=== PATIENT | female | born 1955 | race American Indian/Alaskan Native ===

== ENCOUNTER 2019-06-01 05:53 | Day surgery (SDC) | payer MEDICARE ==
[~2019-06-01 05:53] MED LIST: BUPIVACAINE/PF (0.5%) 5 MG/1 ML 10 ML VIAL INFILTRATI ONE; HEPARIN 10,000 UNITS/10 ML VIAL IV ONE; SODIUM CHLORIDE 0.9% 500 ML IVPB IV ONE
[2019-06-01] MEDS ORDERED: ceFAZolin/Water 2 GM/20 ML 2 GM/20 ML SYRINGE IV NR (07:00)
[2019-06-01] MEDS ORDERED: fentaNYL 100 MCG/2 ML INJ IV PRN (07:12)
[2019-06-01] MEDS ORDERED: ONDANSETRON 4 MG/2 ML INJ IV PRN (07:12)
--- NOTE | 2019-06-01 07:17 | Anesthesia Day of Surgery ---
Anesthesia Day of Surgery - Day of Surgery Patient Examined: Yes Patient H&P Reviewed: Yes Patient is NPO: Yes Beta Blockers: Yes
[2019-06-01] MEDS ORDERED: SODIUM CHLORIDE 0.9% 500 ML 500 ML ONE (07:19)
[2019-06-01] MEDS ORDERED: HEPARIN 10,000 UNITS/10 ML VIAL ONE (07:19)
[2019-06-01] MEDS ORDERED: BUPIVACAINE/PF (0.5%) 5 MG/1 ML 30 ML VIAL INFILTRATI ONE (07:19)
[2019-06-01] MEDS ORDERED: SODIUM CHLORIDE P/F VIAL 10 ML 0 ML ONE (07:19)
[2019-06-01] MEDS ORDERED: PROTAMINE SULFATE 50 MG/5 ML INJ ONE (07:19)
[2019-06-01] MEDS ORDERED: NITROGLYCERIN SYRINGE 0 ML ONE (07:20)
--- NOTE | 2019-06-01 07:23 | Anesthesia Consultation ---
Anesthesia Consult and Med Hx Date of service: 06/01/19 - Airway Anesthetic Teeth Evaluation: Poor (LOOSE) ROM Head & Neck: Adequate Mental/Hyoid Distance: Adequate Mallampati Class: Class III Intubation Access Assessment: Probably Good - Pulmonary Exam CTA: Yes - Cardiac Exam Cardiac Exam: RRR - Pre-Operative Health Status ASA Pre-Surgery Classification: ASA3 Proposed Anesthetic Plan: General - Pulmonary Hx Smoking: No Hx Respiratory Symptoms: Yes (Bronchitis last week. ABX and pt states much better) SOB: Yes Hx Sleep Apnea: No - Cardiovascular System Hx Hypertension: Yes (CHF-pt states stable) Hx Heart Attack/AMI: No - Central Nervous System Hx Neuromuscular Disorder: Yes (Fibromyalgia) Hx Psychiatric Problems: No - Endocrine Hx Renal Disease: Yes Hx End Stage Renal Disease: Yes (DX 1 YR.) Hx Non-Insulin Dependent Diabetes: Yes - Hematic Hx Anemia: Yes - Other Systems Hx Alcohol Use: Yes (OCC WINE) Hx Substance Use: No Hx Cancer: No
[2019-06-01 07:26] LABS: Hematocrit 21.7 % (30.3-42.9); Hemoglobin 7.4 gm/dl (10.1-14.3); Mean Corpuscular HGB Conc 34 % (30-34); Mean Corpuscular Volume 95 fl (79-97); Platelet Count 239 K/mm3 (140-440); Red Blood Count 2.28 M/mm3 (3.65-5.03)
[2019-06-01 07:34] LABS: Calcium 8.9 mg/dL (8.4-10.2)
[2019-06-01] MEDS ORDERED: fentaNYL 100 MCG/2 ML INJ ONE (07:42)
[2019-06-01] MEDS ORDERED: PROPOFOL 200 MG/20 ML VIAL IV ONE (07:42)
[2019-06-01] MEDS ORDERED: KETAMINE/STERILE WATER 50 MG/ML SYRINGE ONE (07:42)
[2019-06-01] MEDS ORDERED: LIDOCAINE MPF (2%) 20 MG/1 ML VIAL 5 ML ONE (07:42)
[2019-06-01] MEDS ORDERED: SODIUM CHLORIDE 0.9% 1000 ML 1,000 ML IV SCH (08:00)
[2019-06-01] MEDS ORDERED: PHENYLEPHRINE/NS 1,000 MCG/10 ML SYRINGE (OR USE) IV ONE (08:53)
[2019-06-01] MEDS ORDERED: GLYCOPYRROLATE 0.4 MG/2 ML INJ ONE (08:56)
[2019-06-01] MEDS ORDERED: SODIUM CHLORIDE 0.9% 500 ML IVPB IV ONE (09:32)
[2019-06-01] MEDS ORDERED: HEPARIN 10,000 UNITS/10 ML VIAL IV ONE (09:32)
[2019-06-01] MEDS ORDERED: BUPIVACAINE/PF (0.5%) 5 MG/1 ML 10 ML VIAL INFILTRATI ONE (09:50)
--- NOTE | 2019-06-01 10:09 | Short Stay Summary ---
Short Stay Documentation Date of service: 06/01/19 Narrative H&P: See H&P - History H&P: obtained from office - Allergies and Medications Current Medications: Allergies codeine Adverse Reaction (Intermediate, Verified 05/30/19 12:17) Itching hydrocodone Adverse Reaction (Verified 06/01/19 08:00) Itching lisinopril Adverse Reaction (Verified 06/01/19 08:00) Itching Home Medications Medication Instructions Recorded Confirmed Last Taken Type ALBUTEROL NEB's [Proventil 0.083% 1 inhalation IH PRN 05/30/19 06/01/19 05/31/19 20:00 History NEBS] Doxazosin 1 mg PO DAILY 05/30/19 06/01/19 06/01/19 07:20 History Gabapentin 100 mg PO DAILY 05/30/19 06/01/19 06/01/19 07:20 History Me-Tetrahydrofolate/B12/Dog501 1 cap PO DAILY 05/30/19 06/01/19 05/31/19 11:00 History [Rheumate Capsule] Rosuvastatin (Nf) 5 mg PO DAILY 05/30/19 06/01/19 05/31/19 11:00 History Sitagliptin Phosphate [Januvia] 25 mg PO DAILY 05/30/19 06/01/19 05/31/19 11:00 History Torsemide [Demadex] 100 mg PO DAILY 05/30/19 06/01/19 05/31/19 11:00 History carvediloL [Coreg] 25 mg PO BID 05/30/19 06/01/19 06/01/19 07:20 History Active Medications Fentanyl (Sublimaze) 50 mcg IV Q5MIN PRN PRN Reason: Pain , Severe (7-10) Stop: 06/01/19 16:00 Cefazolin Sodium (Ancef/Sterile Water 2 Gm/20 Ml) 2 gm in 20 mls @ 80 mls/hr IV PREOP NR; Protocol Stop: 06/01/19 23:59 Sodium Chloride (Nacl 0.9% 1000 Ml) 1,000 mls @ 42 mls/hr IV DIRECT DEE Last Admin: 06/01/19 07:40 Dose: 42 mls/hr Documented by: Ondansetron HCl (Zofran) 4 mg IV ONCE PRN PRN Reason: Nausea And Vomiting Stop: 06/01/19 16:00 - Brief post op/procedure progress note Date of procedure: 06/01/19 Pre-op diagnosis: Chronic Renal Insufficiency Post-op diagnosis: same Procedure: Creation of Left Brachiobasilic Arteriovenous Fistula Anesthesia: JOSE Surgeon: DAWN AARON Estimated blood loss: minimal Pathology: none Condition: stable - Disposition Condition at discharge: Good Disposition: DC-01 TO HOME OR SELFCARE Short Stay Discharge Plan Activity: other (No lifting with left arm, use stress ball frequently) Wound: open to air, keep clean and dry, other (Okay to Shower and Wash the Wound with Soap and Water but Do Not Soak in Water) Follow up with: DAWN AARON MD [Staff Physician] - 14 Days Prescriptions: oxyCODONE /ACETAMINOPHEN [Percocet 5/325] 1 tab PO Q6HR PRN #40 tablet PRN Reason: Pain
--- NOTE | 2019-06-01 10:13 | Operative Report ---
Operative Report Operative Report: Date of procedure: 06/01/2019 Pre-operative diagnosis: End-stage Renal Disease Post-operative diagnosis: End-stage Renal Disease Procedure(s): Creation of Left Brachial Artery to Basilic Arteriovenous Fistula Surgeon: Suhail Adkins MD Automobile Sales Consultant: None Anesthesia: Local/LMA EBL: Minimal Counts: Correct Complications: None Condition: Stable Findings: Successful creation of left brachial basilic arteriovenous fistula with palpable thrill at completion of the procedure. Specimen: None Indication: The patient is a 64-year-old female with a history of stage IV chronic renal insufficiency who is not yet on hemodialysis but anticipated that she will require hemodialysis within the next several months. She is in need of long- term access to avoid requiring a permacath for dialysis. She is a vein mapping demonstrated she was an adequate candidate for creation of an AV fistula. She was given the risk, benefits, and alternative procedures of creation of an AV fistula and consented to the procedure. Description of Procedure: The patient was brought to the operating room and laid in supine position after general endotracheal anesthesia was administered the patient was prepped and draped in normal sterile fashion. After anesthetizing the skin a transverse incision was created just below the antecubital crease. Dissection was carried down to the the basilic vein using sharp dissection. The vein was dissected out both proximally and distally and suture ligated and divided distally. I then ran a 3 Susnhine proximally in the vein, to ensure patency of the vein. I then flushed the vein with heparinized saline and controlled flow with a bulldog clamp. I then dissected out the brachial artery through this incision circumferentially both proximal and distal and controlled th artery with vessel loops. I placed the vessel loops on tension, controlling the flow through the artery, and created an arteriotomy using an 11 blade and Clemens scissors. I created an end to side anastomosis between the basilic vein and brachial artery using a 6-0 Prolene in running fashion. Prior to completing the anastomosis I flushed the artery both proximally and distally and then advanced a 3 Sunshine proximally to break the spasm in the artery. I completed the anastomosis and removed all vessel loops allowing flow into the fistula which had an excellent thrill. I achieved hemostasis with a combination of direct pressure and electrocautery. Once hemostasis was achieved I anesthetized the wound with Marcaine. I closed the wound in 2 layers using 3-0 Vicryl in a running fashion to close the deep dermal layer and 4-0 Monocryl in a running fashion in the subcuticular layer. I dressed the wound with Surgicel. The patient tolerated the procedure well, all sponge needle and instrument counts were correct. The patient was taken to recovery in stable condition.
[2019-06-01] MEDS ORDERED: oxyCODONE /ACETAMINOPHEN 5-325MG TAB PO PRN (10:50)
[2019-06-01 12:00] VITALS: BP 158/81
--- NOTE | 2019-06-01 15:51 | Post Anesthesia Evaluation ---
- Post Anesthesia Evaluation Patient Participated: Yes Airway Patent: Yes Stable Respiratory Function: Yes Nausea/Vomiting: No Temp > 96.8F: Yes Pain Manageable: Yes Adequeate Hydration: Yes Anesthesia Complications: No Block Receding Appropriately: Not Applicable Patient on Ventilator: No
== END 2019-06-01 11:50 | disposition home or self-care (01) ==
LOC: OR 05:53
PROVIDERS: ATTEND Surgery Vascular Surgery
DX: I13.2 Hypertensive heart and chronic kidney disease with heart failure and with stage 5 chronic kidney disease, or end stage renal disease (principal); E11.22 Type 2 diabetes mellitus with diabetic chronic kidney disease; N18.6 End stage renal disease; I50.9 Heart failure, unspecified; E78.00 Pure hypercholesterolemia, unspecified; M19.90 Unspecified osteoarthritis, unspecified site; M79.7 Fibromyalgia; Z88.5 Allergy status to narcotic agent; Z88.8 Allergy status to other drugs, medicaments and biological substances; Z79.899 Other long term (current) drug therapy; Z90.710 Acquired absence of both cervix and uterus; Z72.89 Other problems related to lifestyle; Z98.890 Other specified postprocedural states; Z86.2 Personal history of diseases of the blood and blood-forming organs and certain disorders involving the immune mechanism
CPT/HCPCS: 36415; 36821; 80048; 82803; 82962; 85027; J0690; J1644; J2370; J2704; J3010; J7030; J7040; J2720

== ENCOUNTER 2019-07-27 06:52 | Day surgery (SDC) | payer MEDICARE ==
[~2019-07-27 06:52] MED LIST changes: -BUPIVACAINE/PF (0.5%) 5 MG/1 ML 10 ML VIAL INFILTRATI ONE; -HEPARIN 10,000 UNITS/10 ML VIAL IV ONE; -SODIUM CHLORIDE 0.9% 500 ML IVPB IV ONE; +ceFAZolin/Water 2 GM/20 ML 2 GM/20 ML SYRINGE IV NR
--- NOTE | 2019-07-27 07:52 | Anesthesia Consultation ---
Anesthesia Consult and Med Hx Date of service: 07/27/19 - Airway Anesthetic Teeth Evaluation: Poor (loose botton incisor, multiple chipped and missing teeth) ROM Head & Neck: Inadequate (mild restricted extension) Mental/Hyoid Distance: Adequate Mallampati Class: Class II Intubation Access Assessment: Possibly Difficult (previous easy LMA 4) - Pulmonary Exam CTA: Yes - Cardiac Exam Cardiac Exam: RRR - Pre-Operative Health Status ASA Pre-Surgery Classification: ASA3 Proposed Anesthetic Plan: General - Pulmonary Hx Smoking: No Hx Respiratory Symptoms: No - Cardiovascular System Hx Hypertension: Yes (took carvedilol this morning) Hx Heart Attack/AMI: No (hx CHF - follows w/ cardiology outpatient. Patient states stable.) Hx Percutaneous Transluminal Coronary Angioplasty (PTCA): No Hx Cardia Arrhythmia: No Hx Pacemaker: No Hx Internal Defibrillator: No - Central Nervous System Hx Neuromuscular Disorder: No (Fibromyalgia) CVA: No Hx Psychiatric Problems: No - Gastrointestinal Hx Gastroesophageal Reflux Disease: No - Endocrine Hx End Stage Renal Disease: Yes (last HD 07/26/2019) Hx Liver Disease: No Hx Non-Insulin Dependent Diabetes: Yes Hx Thyroid Disease: No - Hematic Hx Anemia: Yes - Other Systems Hx Obesity: Yes - Additional Comments Anesthesia Medical History Comments: Hx post-discharge nausea/vomiting. No signs/symptoms HF compensation.
--- NOTE | 2019-07-27 07:52 | Anesthesia Day of Surgery ---
Anesthesia Day of Surgery - Day of Surgery Patient Examined: Yes Patient H&P Reviewed: Yes Patient is NPO: Yes Beta Blockers: Yes (carvedilol 15 AM)
[2019-07-27] MEDS ORDERED: SCOPOLAMINE TRANSDERMAL PATCH 72 HR TD NR (08:00)
[2019-07-27] MEDS ORDERED: SODIUM CHLORIDE 0.9% 1000 ML 1,000 ML IV SCH (08:00)
[2019-07-27] MEDS ORDERED: fentaNYL 100 MCG/2 ML INJ IV PRN (08:00)
[2019-07-27] MEDS ORDERED: ONDANSETRON 4 MG/2 ML INJ ONE ×2 (08:20→10:58)
[2019-07-27] MEDS ORDERED: ONDANSETRON 4 MG/2 ML INJ IV NR (08:45)
[2019-07-27] MEDS ORDERED: PAPAVERINE 60 MG/2 ML INJ SDV ONE (10:52)
[2019-07-27] MEDS ORDERED: SODIUM CHLORIDE P/F VIAL 10 ML 0 ML ONE (10:52)
[2019-07-27] MEDS ORDERED: rifAMPin 600 MG VIAL ONE (10:52)
[2019-07-27] MEDS ORDERED: HEPARIN 10,000 UNITS/10 ML VIAL ONE (10:52)
[2019-07-27] MEDS ORDERED: LIDOCAINE (1%) 10 MG/1 ML VIAL 20 ML MDV ONE (10:52)
[2019-07-27] MEDS ORDERED: SODIUM CHLORIDE 0.9% 500 ML 500 ML ONE (10:52)
[2019-07-27] MEDS ORDERED: PROTAMINE SULFATE 50 MG/5 ML INJ ONE (10:52)
[2019-07-27] MEDS ORDERED: BUPIVACAINE/PF (0.5%) 5 MG/1 ML 30 ML VIAL INFILTRATI ONE ×3 (10:52→17:58)
[2019-07-27] MEDS ORDERED: dexAMETHasone 20 MG/5 ML VIAL ONE (10:58)
[2019-07-27] MEDS ORDERED: PHENYLEPHRINE/NS 1,000 MCG/10 ML SYRINGE (OR USE) IV ONE (10:58)
[2019-07-27] MEDS ORDERED: LIDOCAINE MPF (2%) 20 MG/1 ML VIAL 5 ML ONE ×2 (10:58→17:07)
[2019-07-27] MEDS ORDERED: PROPOFOL 200 MG/20 ML VIAL IV ONE ×2 (10:58→17:08)
[2019-07-27] MEDS ORDERED: fentaNYL 100 MCG/2 ML INJ ONE ×3 (10:58→20:29)
[2019-07-27] MEDS ORDERED: GLYCOPYRROLATE 0.4 MG/2 ML INJ ONE (17:51)
[2019-07-27] MEDS ORDERED: HEPARIN 1,000 UNIT/1 ML VIAL IV ONE (17:58)
[2019-07-27] MEDS ORDERED: SODIUM CHLORIDE 0.9% 0 ML ONE (18:05)
--- NOTE | 2019-07-27 20:22 | Short Stay Summary ---
Short Stay Documentation Date of service: 07/27/19 Narrative H&P: See H&P - History H&P: obtained from office - Allergies and Medications Current Medications: Allergies codeine Adverse Reaction (Intermediate, Verified 07/21/19 15:14) Itching hydrocodone Adverse Reaction (Verified 07/21/19 15:14) Itching lisinopril Adverse Reaction (Verified 07/21/19 15:14) Itching Home Medications Medication Instructions Recorded Confirmed Last Taken Type ALBUTEROL NEB's [Proventil 0.083% 1 inhalation IH PRN 05/30/19 07/27/19 05/31/19 20:00 History NEBS] Doxazosin 1 mg PO DAILY 05/30/19 07/27/19 07/26/19 History Gabapentin 100 mg PO DAILY 05/30/19 07/21/19 07/26/19 History Me-Tetrahydrofolate/B12/Eyg899 1 cap PO DAILY 05/30/19 07/27/19 05/31/19 11:00 History [Rheumate Capsule] Rosuvastatin (Nf) 5 mg PO DAILY 05/30/19 07/21/19 07/26/19 History Sitagliptin Phosphate [Januvia] 25 mg PO DAILY 05/30/19 07/21/19 07/26/19 History Torsemide [Demadex] 100 mg PO DAILY 05/30/19 07/21/19 07/26/19 History carvediloL [Coreg] 25 mg PO BID 05/30/19 07/21/19 07/27/19 06:20 History oxyCODONE /ACETAMINOPHEN [Percocet 1 tab PO Q6HR PRN #40 tablet 06/01/19 07/21/19 07/26/19 Rx 5/325] Active Medications Sodium Chloride (Nacl 0.9% 1000 Ml) 1,000 mls @ 42 mls/hr IV DIRECT DEE Last Admin: 07/27/19 08:40 Dose: 42 mls/hr Documented by: - Brief post op/procedure progress note Date of procedure: 07/27/19 Pre-op diagnosis: Complications of Dialysis Access Post-op diagnosis: same Procedure: Revision with Elevation of Left Brachiobasilic Arteriovenous Fistula Anesthesia: GETA Surgeon: DAWN AARON Estimated blood loss: minimal Pathology: none Condition: stable - Disposition Condition at discharge: Good Disposition: DC-01 TO HOME OR SELFCARE Short Stay Discharge Plan Activity: other (No heavy lifting with left arm until cleared by surgeon) Wound: open to air, keep clean and dry, other (Okay to wash the wound with soap and water bu do no soak in water) Follow up with: DAWN AARON MD [Staff Physician] - 14 Days Prescriptions: oxyCODONE /ACETAMINOPHEN [Percocet 5/325 mg] 1 tab PO Q6HR PRN #40 tablet PRN Reason: Pain
--- NOTE | 2019-07-27 20:27 | Operative Report ---
Operative Report Operative Report: Date of procedure: 07/27/2019 Pre-operative diagnosis: Complications of Dialysis Access Post-operative diagnosis: Same Procedure(s): Revision with Elevation of Left Brachiobasilic AV Fistula Surgeon: Suhail Adkins MD It Communications Manager: None Anesthesia: General Endotracheal Anesthesia EBL: Minimal Counts: Correct Complications: None Condition: Stable Findings: Successful elevation of left brachiobasilic fistula with excellent thrill. Specimen: None Indication: The patient is a 64-year-old female with a history of end-stage renal disease who is on hemodialysis through a right internal permacath. She had creation of left brachial basilic arteriovenous fistula that is in the revision with elevati on. She was given the risks, benefits, and alternative procedures and concentric procedure. Description of Procedure: The patient was brought to the operating room and laid in supine position after general endotracheal anesthesia was achieved her left arm was prepped and draped in normal sterile fashion. A longitudinal incision was then created on the medial aspect of the arm centered over the fistula extending from the axillary crease to the antecubital crease. Sharp dissection was used to continue the dissection down to the fistula. The fistula was then dissected circumferentially and all side branches were suture ligated and divided. A Nadira-Wick tunneler was then used to tunnel from the distal part of the incision towards the proximal portion of the incision and a lateral and slightly curved direction. The fistula was then marked on the anterior surface, the inflow was controlled with a DeBakey, clamp and the outflow was controlled with bulldog clamps. This vessel was then divided near the arterial inflow and secured to the Nadira-Wick tunneler with 2-0 silk and then pulled retrograde through the tunnel. I flushed the venous outflow with heparinized saline to assure that there was no evidence of twist or kinks. I then performed an end-to-end anastomosis between the proximal and distal ends using two 6-0 Prolenes in running fashion. Prior to completing the anastomosis I flushed the arterial inflow of the fistula to ensure there was no clot or debris. I then completed the anastomosis and removed all clamps allowing flow through the fistula which had an excellent thrill. I achieved hemostasis in the wound with a combination of direct pressure and electrocautery. I then anesthetized the wound with 0.5% Marcaine and closed the wound in 2 layers using a 3-0 Vicryl in running fashion in the deep dermal layer and a 4-0 Monocryl in running fashion in the subcuticular. I then dressed the wound with Dermabond. The patient tolerated the procedure well, all sponge needle and instrument counts were correct, the patient was taken to the recovery area in stable condition.
[2019-07-27] MEDS: fentaNYL 100 MCG/2 ML INJ IV PRN ×2 (20:30→20:42)
[2019-07-27] MEDS ORDERED: oxyCODONE /ACETAMINOPHEN 5-325MG TAB PO PRN (20:32)
[2019-07-27 20:53] VITALS: BP 150/63
--- NOTE | 2019-07-27 21:02 | Post Anesthesia Evaluation ---
- Post Anesthesia Evaluation Patient Participated: Yes Airway Patent: Yes Stable Respiratory Function: Yes Nausea/Vomiting: No Temp > 96.8F: Yes Pain Manageable: Yes Adequeate Hydration: Yes Anesthesia Complications: No
== END 2019-07-27 21:25 | disposition home or self-care (01) ==
LOC: OR 06:52
PROVIDERS: ATTEND Surgery Vascular Surgery
DX: I13.2 Hypertensive heart and chronic kidney disease with heart failure and with stage 5 chronic kidney disease, or end stage renal disease (principal); I50.9 Heart failure, unspecified; N18.6 End stage renal disease; E78.00 Pure hypercholesterolemia, unspecified; D64.9 Anemia, unspecified; E66.9 Obesity, unspecified; Z90.710 Acquired absence of both cervix and uterus; Z98.890 Other specified postprocedural states; Z99.2 Dependence on renal dialysis; Z88.5 Allergy status to narcotic agent; Z88.8 Allergy status to other drugs, medicaments and biological substances; Z79.899 Other long term (current) drug therapy; Z72.89 Other problems related to lifestyle; Z68.36 Body mass index [BMI] 36.0-36.9, adult
CPT/HCPCS: 36832; 82803; 82962; C1757; J0690; J1100; J1644; J2370; J2405; J2704; J3010; J7030; J7040; J2440; J2720; J3490

== ENCOUNTER 2021-04-03 08:23 | Day surgery (SDC) | payer MEDICARE ==
[2021-04-03] MEDS ORDERED: SODIUM CHLORIDE 0.9% 500 ML 500 ML IV SCH (09:00)
[2021-04-03] MEDS ORDERED: LIDOCAINE (2%) 20 MG/1 ML VIAL 20 ML MDV INFILTRATI ONE (10:34)
[2021-04-03] MEDS ORDERED: HEPARIN/NS 5000 UNIT/500ML 1,000 ML IR ONE (10:35)
[2021-04-03] MEDS ORDERED: fentaNYL 100 MCG/2 ML INJ ONE (10:37)
[2021-04-03] MEDS ORDERED: MIDAZOLAM 2 MG/2 ML INJ ONE (10:37)
--- NOTE | 2021-04-03 10:40 | Short Stay Summary ---
Short Stay Documentation Date of service: 04/03/21 Narrative H&P: The patient is a 65-year-old female with a history of end-stage renal disease who presented to an outside hospital with a diagnosis of COVID-19 infection on March 04, 2021. She states during that hospitalization her left arm arteriovenous graft thrombosed. During hospitalization she did not undergo intervention to restore flow in the graft and instead had a permacath placed. She presents for possible percutaneous mechanical thrombectomy of the graft. She has no additional complaints at this time. She has been given the risk, benefits, and alternative procedures and has consented to the procedure. - History Past Medical History: diabetes, dialysis, ESRD, heart failure, hypertension Past Surgical History: Other (Creation of left arm arteriovenous graft x2) Social history: no significant social history - Allergies and Medications Current Medications: Allergies codeine Adverse Reaction (Intermediate, Verified 07/21/19 15:14) Itching hydrocodone Adverse Reaction (Verified 07/21/19 15:14) Itching lisinopril Adverse Reaction (Verified 07/21/19 15:14) Itching Home Medications Medication Instructions Recorded Confirmed Last Taken Type ALBUTEROL NEB's [Proventil 0.083% 1 inhalation IH PRN 05/30/19 04/03/21 02/24/21 History NEBS] 3 ml Sitagliptin Phosphate [Januvia] 25 mg PO DAILY 05/30/19 04/03/21 04/02/21 History 25 mg Torsemide [Demadex] 100 mg PO DAILY 05/30/19 04/03/21 04/02/21 History 100 mg carvediloL [Coreg] 25 mg PO BID 05/30/19 04/03/21 04/02/21 History 25 mg Cholecalciferol Vit D3 [Vitamin D3 125 mcg PO DAILY 04/03/21 04/03/21 04/02/21 History 1,000 UNIT TAB] 125 mcg Cinacalcet [Sensipar] 30 mg PO DAILY 04/03/21 04/03/21 04/02/21 History 30 mg Ferric Citrate (Nf) [Auryxia] 2 tab PO BID 04/03/21 04/03/21 04/02/21 History 2 tabs Ferrous Sulfate [Iron 325 MG] 325 mg PO DAILY 04/03/21 04/03/21 04/02/21 History 1 tab NIFEdipine [Procardia Xl] 30 mg PO DAILY 04/03/21 04/03/21 04/02/21 History 30 mg Rosuvastatin Calcium [Crestor] 10 mg PO DAILY 04/03/21 04/03/21 04/02/21 History 10 mg Vit B Complx C/Folic Acid/Zinc 1 tab PO DAILY 04/03/21 04/03/21 04/02/21 History [Dialyvite 800-Zinc 15 mg Tab] 1 tab Active Medications Sodium Chloride (Nacl 0.9% 500 Ml) 500 mls @ 50 mls/hr IV DIRECT DEE - Physical exam General appearance: no acute distress Lungs: Normal air movement Breasts: deferred Heart: Regular rate Gastrointestinal: normal Female Genitourinary: deferred Rectal Exam: deferred Extremities: no ischemia, abnormal (Left arm AV graft is without pulse or thrill, there is no pseudoaneurysm present) - Brief post op/procedure progress note Date of procedure: 04/03/21 Pre-op diagnosis: Complications of Dialysis Access Post-op diagnosis: same Procedure: 1. Access Left Arm AV Graft with 7 Sudanese Sheath Venous 2. Access Left Arm AV Graft with 6 Sudanese Sheath Arterial 3. Diagnostic Fistulogram with Central Venogram 4. Angioplasty and Stent of Left Arm AV Graft With 8 x 40 Conquest Balloon, 8 x 60 Covera Stent Graft at the Venous Anastomosis, 8 x 5 cm Viabahn Stent Graft Near the Arterial Inflow, and 6 x 40 Grapevine Balloon of the Arterial Anastomosis 5. Percutaneous Pharmacomechanical Thrombectomy of Left Arm AV Graft with 6 mg of TPA, Trerotola Device, and Aspiration with a 6 Sudanese MP Guide Catheter 6. Catheter in Left Brachial Artery 7. Diagnostic Left Upper Extremity Angiogram 8. Radiologic Supervision with Interpretation 9. Monitored Moderate Sedation (Total Anesthesia Time: 86 Minutes) Anesthesia: local, other (Monitored Moderate Sedation) Surgeon: DAWN AARON Estimated blood loss: minimal Pathology: none Condition: stable - Disposition Condition at discharge: Good Short Stay Discharge Plan Wound: remove dressing (Remove dressings during next dialysis session. Remove the sutures by pulling the longer of the 2 strings.) Follow up with: DAWN AARON MD [Staff Physician] - 14 Days (Follow-up in the office for permacath removal after 6 successful cannulations of the left arm AV graft at dialysis.)
[2021-04-03] MEDS ORDERED: MIDAZOLAM 2 MG/2 ML INJ IV ONE ×2 (10:56→11:05)
[2021-04-03] MEDS ORDERED: fentaNYL 100 MCG/2 ML INJ IV ONE ×2 (10:57→11:05)
[2021-04-03] MEDS ORDERED: WATER FOR INJ Sterile (PF) 10 ML ONE (11:15)
[2021-04-03] MEDS ORDERED: HEPARIN 10,000 UNITS/10 ML VIAL ONE (11:15)
[2021-04-03] MEDS ORDERED: ALTEPLASE 2 MG INJ ONE (11:17)
[2021-04-03] MEDS ORDERED: HEPARIN/NS 5000 UNIT/500ML 500 ML IR ONE (12:05)
--- NOTE | 2021-04-03 12:53 | Operative Report ---
Operative Report Operative Report: Date of Procedure: 04/03/2021 Pre-operative Diagnosis: Complications of Dialysis Access Post-operative Diagnosis: Same Procedure(s): 1. Access Left Arm AV Graft with 7 Burmese Sheath Venous 2. Access Left Arm AV Graft with 6 Burmese Sheath Arterial 3. Diagnostic Fistulogram with Central Venogram 4. Angioplasty and Stent of Left Arm AV Graft With 8 x 40 Conquest Balloon, 8 x 60 Covera Stent Graft at the Venous Anastomosis, 8 x 5 cm Viabahn Stent Graft Near the Arterial Inflow, and 6 x 40 Buda Balloon of the Arterial Anastomosis 5. Percutaneous Pharmacomechanical Thrombectomy of Left Arm AV Graft with 6 mg of TPA, Trerotola Device, and Aspiration with a 6 Burmese MP Guide Catheter 6. Catheter in Left Brachial Artery 7. Diagnostic Left Upper Extremity Angiogram 8. Radiologic Supervision with Interpretation 9. Monitored Moderate Sedation (Total Anesthesia Time: 86 Minutes) Surgeon: Suhail Adkins M.D. Technical Services Coordinator: Max Anesthesia: Local/Monitored Moderate Sedation Total Anesthesia Time: 86 Minutes EBL: Minimal Counts: Correct Complications: None Condition: Stable Specimen: None Indication: The patient is a 66-year-old female with a history of end-stage renal disease who was hospitalized with COVID-19 infection. During the hospitalization her left arm AV graft thrombosed and she had a permacath placed for dialysis access. She presented approximately 1 month after this occurred for possible percutaneous mechanical thrombectomy of the AV access. She is in need of a diag nostic fistulogram with possible intervention. She was given the risk, benefits, and alternative procedures and consented to the procedure. Angiographic Findings: The diagnostic fistulogram revealed thrombus throughout the cannulation zone of the graft. There was a 95% stenosis of the venous outflow in the axillary vein of the arteriovenous fistula. The central venous system was patent without evidence of flow-limiting stenosis. There was approximately 75% stenosis of the arterial anastomosis. The left upper extremity angiogram revealed that the brachial artery was patent without evidence of flow-limiting stenosis. Both the proximal radial and ulnar arteries were patent without evidence of flow-limiting stenosis. After intervention the the arteriovenous fistula was patent with minimal residual thrombus. The venous outflow was patent with less than 10% residual stenosis. The arterial inflow was patent with less than 15% residual stenosis. The brachial artery remained patent without evidence of distal emboli as well as no evidence of distal emboli in the radial and ulnar arteries. Description of Procedure: The patient was brought to the [facility] and laid in supine position. After timeout was performed her left arm was prepped and draped in normal sterile fashion. Lidocaine was used to anesthetize the skin and soft tissue overlying the fistula near the arterial inflow and a 21-gauge micropuncture needle was used to access the fistula towards the venous outflow. A 0.018 micropuncture wire was advanced to the fistula and after removing the needle a 7 Burmese sheath was placed by Seldinger technique. A diagnostic fistulogram was performed with the previously described findings. I advanced the vertebral catheter and 0.035 floppy Glidewire through the stenosis and into the central venous system performed a central venogram with the previously described findings. At this point the patient was systemically heparinized with 5000 units of heparin IV and this was redosed every 45 minutes into the completion of the case. I performed angioplasty of the anastomosis with an 8 x 40 Buda Balloon however there was significant recoil of the stenosis with approximately 75% residual stenosis. At this time I decided that the patient will require stent placement. Prior to placing the stent I injected 6 mg of TPA into the fistula to lyse the heavy thrombus burden. I then used the Trerotola device to morcellate the thrombus and used a 6 Burmese MP guide catheter to aspirate the thrombus. The follow-up fistulogram revealed minimal residual thrombus. I then removed the 7 Burmese sheath and advanced an 8 x 60 Covera Stent Graft, bareback, into position across the area of stenosis and deployed it. I removed the delivery catheter and replaced the 7 Burmese sheath. I postdilated the stent graft using an 8 x 40 Conquest Balloon with a result of less than 10% residual stenosis. There was some residual thrombus which I treated with the Trerotola device and was able to aspirated with the MP guide catheter resulted in minimal residual thrombus. I then anesthetized the skin and soft tissue overlying the fistula near the venous outflow and accessed the fistula towards the arterial inflow using a 21-gauge micropuncture needle. I advanced the 0.018 micropuncture wire into the fistula and after removing the needle placed a 6 Burmese sheath by Seldinger technique. I advanced the Glidewire and vertebral catheter into the proximal brachial artery and performed a diagnostic angiogram with the previously described findings. This also revealed the stenosis within the arterial inflow of the fistula. I exchanged the Glidewire for a 0.035 J-wire and performed angioplasty of the arterial anastomosis and inflow using a 6 x 40 Buda Balloon with a res ult of less than 15% residual stenosis. I then remove the wire and used the Trerotola to morcellate thrombus within the arterial inflow. The Trerotola became bound on the wall of the fistula while making a turn and perforated the fistula near the arterial inflow. I was able to dislodge the Trerotola however initially had difficulty crossing the area of perforation. I was eventually able to cross the perforation and advance a catheter and wire into the brachial artery which was confirmed by angiogram. I advanced a 0.018 V18 wire into the proximal brachial artery and exchanged my 6 Burmese sheath for a 7 Burmese 11 cm sheath. I then advanced an 8 x 5 cm Viabahn stent graft across the area of perforation and deployed it. I postdilated the stent graft with the 8 x 40 Conquest Balloon which resulted in less than 10% residual stenosis and no evidence of extravasation around the stent graft. I advanced the 6 Burmese MP guide catheter into the arterial inflow of the fistula and was able to aspirate the remaining thrombus. A follow-up fistulogram revealed that some of the thrombus had embolized into the previously placed stent graft in the venous outflow. I advanced the MP guide catheter into the stent graft and was able to aspirate that thrombus and at this point the patient developed a robust thrill. I performed a final angiogram which revealed brisk flow of contrast through the brachial artery without evidence of distal emboli and brisk flow of contrast throughout the fistula with less than 15% residual stenosis within the arterial inflow, less than 10% residual stenosis in the venous outflow, and minimal residual thrombus throughout the fistula. At that point all catheters and wires were removed and 2-0 Ethilon in slipknot fashion was used to close each entry site after removing the sheath. Sterile dressings were then applied to the entry sites and the patient was transported to the recovery area in stable condition.
[2021-04-03] MEDS ORDERED: oxyCODONE /ACETAMINOPHEN 5-325MG TAB PO PRN (13:18)
[2021-04-03] MEDS ORDERED: diphenhydrAMINE 25 MG CAP PO PRN (13:18)
[2021-04-03 13:50] VITALS: BP 160/72
== END 2021-04-03 14:45 | disposition home or self-care (01) ==
LOC: CATHLABREC 08:23
PROVIDERS: ATTEND Surgery Vascular Surgery
DX: I12.0 Hypertensive chronic kidney disease with stage 5 chronic kidney disease or end stage renal disease (principal); N18.6 End stage renal disease; E78.00 Pure hypercholesterolemia, unspecified; E66.9 Obesity, unspecified; K21.9 Gastro-esophageal reflux disease without esophagitis; E11.22 Type 2 diabetes mellitus with diabetic chronic kidney disease; M19.90 Unspecified osteoarthritis, unspecified site; Z79.84 Long term (current) use of oral hypoglycemic drugs; Z79.899 Other long term (current) drug therapy; Z98.890 Other specified postprocedural states; Z88.8 Allergy status to other drugs, medicaments and biological substances
CPT/HCPCS: 36415; 36906; 84132; C1725; C1751; C1757; C1769; C1874; C1894; J1644; J2250; J2997; J3010; J7040; Q9967